=== PATIENT | female | born 1975 | race Caucasian/White ===

== ENCOUNTER 2020-02-20 09:16 | Outpatient (REF) | payer OTHER, SELFPAY ==
[2020-02-20 12:28] LABS: TSH reflex Free T4 1.28 mIU/mL (0.32-4.0)
== END 2020-02-20 09:17 | disposition home or self-care (01) ==
LOC: HO.LAB 09:16
PROVIDERS: PCP Internal Medicine; Referring Provider Internal Medicine; Visit Provider Obstetrics & Gynecology
DX: R63.5 Abnormal weight gain (principal)
CPT/HCPCS: 84443

== ENCOUNTER 2020-03-12 13:03 | Outpatient (REF) | payer OTHER, SELFPAY | END 2020-03-12 13:04 | disposition home or self-care (01) | LOC: HO.LAB 13:03 | PROVIDERS: PCP Internal Medicine; Visit Provider Internal Medicine | DX: Z20.822 Contact with and (suspected) exposure to COVID-19 (principal) | CPT/HCPCS: 36415; C9803; U0003 ==

== ENCOUNTER 2020-04-06 16:23 | Outpatient (REF) | payer OTHER, SELFPAY ==
--- NOTE | ~2020-04-06 | MM_ITS ---
EXAMINATION: MM SCREENING DIGITAL BREAST TOMOSYNTHESIS, BILATERAL CLINICAL INFORMATION: Screening. Asymptomatic. The lifetime risk of breast cancer based on the Tyrer-Cuzick Model is 9%. COMPARISON: Mammography: 03/31/2019, 03/25/2018, 03/17/2017 TECHNIQUE: Digital breast tomosynthesis is performed in both the craniocaudal and mediolateral oblique views along with computer-aided detection (CAD). Synthesized 2D images are generated from the tomosynthesis. Additional exaggerated right CC view is provided. FINDINGS: There are scattered areas of fibroglandular density (ACR BI-RADS breast composition Category b). There are no significant masses, abnormal calcifications, or other abnormalities. Parenchymal pattern is similar to prior studies. No developing density. The axilla and skin contours are unremarkable. There is a dermal lesion overlying the posterior outer right breast on exaggerated CC view. MM/MM tomosynthesis screening BI IMPRESSION: No mammographic evidence of malignancy. ASSESSMENT: BI-RADS 2: Benign RECOMMENDATION: Routine annual mammography screening. This patient's information was entered into a reminder system with a target due date for their next mammogram.
== END 2020-04-06 16:24 | disposition home or self-care (01) ==
LOC: HO.MAMMO 16:23
PROVIDERS: PCP Internal Medicine; Visit Provider Internal Medicine
DX: Z12.31 Encounter for screening mammogram for malignant neoplasm of breast (principal)
CPT/HCPCS: 77063; 77067

== ENCOUNTER 2021-02-20 10:00 | Outpatient (REF) | payer OTHER, SELFPAY ==
[2021-02-20 15:16] LABS: CT PCR NOT DETECTED (Not Detect.); NG PCR NOT DETECTED (Not Detect.)
[2021-02-21 09:36] LABS: BV Int Neg Control Negative (Negative); BV Int Pos Control Positive (Positive)
[2021-02-27 04:41] LABS: HPV mRNA E6/E7 rflx Not Detected (Not Detected)
== END 2021-02-20 10:01 | disposition home or self-care (01) ==
LOC: HO.LAB 10:00
PROVIDERS: Visit Provider Advanced Practice Midwife
DX: Z01.419 Encounter for gynecological examination (general) (routine) without abnormal findings (principal); Z11.51 Encounter for screening for human papillomavirus (HPV); Z97.5 Presence of (intrauterine) contraceptive device
CPT/HCPCS: 87480; 87491; 87510; 87591; 87624; 87660; 88142

== ENCOUNTER 2021-04-11 15:48 | Outpatient (REF) | payer OTHER, SELFPAY ==
--- NOTE | ~2021-04-11 | MM_ITS ---
EXAMINATION: MM SCREENING DIGITAL BREAST TOMOSYNTHESIS, BILATERAL CLINICAL INFORMATION: Screening. Asymptomatic. The lifetime risk of breast cancer based on the Tyrer-Cuzick Model is 8.7%. COMPARISON: Mammography: April 06, 2020 and studies dating back to March 17, 2017 TECHNIQUE: Digital breast tomosynthesis is performed in both the craniocaudal and mediolateral oblique views along with computer-aided detection (CAD). Synthesized 2D images are generated from the tomosynthesis. FINDINGS: There are scattered areas of fibroglandular density (ACR BI-RADS breast composition Category b). There are no significant masses, abnormal calcifications, or other abnormalities. MM/MM tomosynthesis screening BI IMPRESSION: There are no significant changes from prior study. ASSESSMENT: BI-RADS 1: Negative RECOMMENDATION: Routine annual mammography screening. This patient's information was entered into a reminder system with a target due date for their next mammogram.
== END 2021-04-11 15:49 | disposition home or self-care (01) ==
LOC: HO.MAMMO 15:48
PROVIDERS: PCP Internal Medicine; Visit Provider Internal Medicine
DX: Z12.31 Encounter for screening mammogram for malignant neoplasm of breast (principal)
CPT/HCPCS: 77063; 77067

== ENCOUNTER → 2021-05-20 14:21 | Outpatient (BNVA) | payer OTHER, SELFPAY | PROVIDERS: PCP Internal Medicine; Visit Provider Advanced Practice Midwife | DX: Z30.433 Encounter for removal and reinsertion of intrauterine contraceptive device (principal); Z87.891 Personal history of nicotine dependence | CPT/HCPCS: 58301; 81025 ==

== ENCOUNTER → 2021-07-03 14:51 | Outpatient (BNVA) | payer OTHER, SELFPAY | PROVIDERS: PCP Internal Medicine; Visit Provider Advanced Practice Midwife | DX: Z30.431 Encounter for routine checking of intrauterine contraceptive device (principal) | CPT/HCPCS: 81025 ==

== ENCOUNTER → 2022-02-26 09:52 | Outpatient (BNVA) | payer OTHER, SELFPAY | PROVIDERS: PCP Internal Medicine; Visit Provider Advanced Practice Midwife | DX: Z12.4 Encounter for screening for malignant neoplasm of cervix (principal) ==

== ENCOUNTER 2022-04-28 12:44 | Outpatient (REF) | payer OTHER, SELFPAY ==
--- NOTE | ~2022-04-28 | MM_ITS ---
EXAMINATION: MM SCREENING DIGITAL BREAST TOMOSYNTHESIS, BILATERAL CLINICAL INFORMATION: Screening. Asymptomatic. The lifetime risk of breast cancer based on the Tyrer-Cuzick Model is 10.0%. COMPARISON: Mammography: April 11, 2021 and studies dating back to March 17, 2017 TECHNIQUE: Digital breast tomosynthesis is performed in both the craniocaudal and mediolateral oblique views along with computer-aided detection (CAD). Synthesized 2D images are generated from the tomosynthesis. FINDINGS: The breasts are heterogeneously dense, which may obscure small masses (ACR BI-RADS breast composition Category c). There is multiplicity and bilaterality of calcifications left greater than right with no new suspicious changes. No new abnormal dominant mass is seen. No region of architectural distortion is appreciated. MM/MM tomosynthesis screening BI IMPRESSION: No significant changes from prior exam. ASSESSMENT: BI-RADS 2: Benign RECOMMENDATION: Routine annual mammography screening. This patient's information was entered into a reminder system with a target due date for their next mammogram.
== END 2022-04-28 12:45 | disposition home or self-care (01) ==
LOC: HO.MAMMO 12:44
PROVIDERS: Visit Provider Internal Medicine
DX: Z12.31 Encounter for screening mammogram for malignant neoplasm of breast (principal)
CPT/HCPCS: 77063; 77067

== ENCOUNTER 2023-03-04 14:54 | Outpatient (AMB) | payer OTHER, SELFPAY ==
--- NOTE | 2023-03-04 14:57 | MHC.OFFVIS ---
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 Intake Note: problems loosing weight, is wondering if the mirena is the cause of it Edge Drummer Required: No Information Interpreted: non-clinical & clinical Brattice Builder: Brattice Builder Present (Vincenzoyn) Allergies No Known Allergies Allergy (Mild, Verified 03/04/23 15:00) NOT APPLICABLE Medication List - Last Reconciled 03/04/23 by Vickie Hernández CNM fluticasone propionate 50 mcg/actuation sprays intranasal levonorgestrel (Mirena) intrauterine Is last menstrual period known: No (no menses Mirena) 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 Details 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 She sees her primary care provider when she needs to. She is absolutely no worries about STDs and declines testing. PFSH Family History Father Brain aneurysm Social History Alcohol intake: current Alcohol intake frequency: holidays/special occasions only Patient Tobacco Use Status: Former Tobacco user Sexual orientation: Straight/Heterosexual Gender identity: Female Female Reproductive History Menstrual Age of Menarche: 16 control method: progestin IUCD Total pregnancies: 3 Full term: 3 Number of Living Children: 3 Date of last pap smear: 02/25/21 (negative) History of abnormal pap smear: Yes (2001 ASCUS 2000 CIN1, no recent abnormals in 20 years) Date of Mammogram: 04/28/22 Physical Exam Vital Signs: BMI result Body Mass Index 35.7 Const General: healthy appearing, comfortable, no acute distress, well developed and alert Nutritional Appearance: average body habitus Orientation/consciousness: patient oriented x3 Limitations: no limitations HEENT Head: Yes normocephalic Neck Neck: Yes normal visual inspection Chest Chest palpation & inspection: normal inspection of the chest Breast/axilla inspection: normal inspection of the breasts and normal inspection of the axillae Breast/axilla palpation: normal palpation of the breasts and normal palpation of the axillae Resp Effort & Inspection: normal respiratory effort GI Inspection: Yes normal to inspection, No Abdominal wall edema and No distended Palpation (GI): Soft to palpation and nontender Other: Normal external exam vagina pink and moist cervix multiparous with Mirena strings in os cervix mobile nontender uterus mobile nontender not enlarged adnexa nontender very good tone with Kegel. General: Yes bladder normal to palpation External Female Exam: normal external appearance and normal appearance of the urethra Speculum Exam - Vagina: normal appearance of the vagina, normal palpation and normal vaginal discharge Speculum Exam - Cervix: normal appearance of the cervix, normal palpation and nontender Bimanual exam- vagina & uterus: normal bimanual exam, normal palpation, uterine size normal, bladder normal to palpation, consistency normal, normal palpation, uterine mobility normal, uterine shape normal, No Cervical tenderness present, non-tender and no cervical motion tenderness Bimanual Exam- Adnexa, other: normal adnexae, no masses, normal and No adnexal tenderness Neuro General: patient oriented x3 Assessment & Plan Assessment & Plan (1) Encounter for routine checking of intrauterine contraceptive device (IUD): Code(s): Z30.431 - Encounter for routine checking of intrauterine contraceptive device (2) Cervical cancer screening: Comment: 02/20/21 pap= neg/ neg hpv Code(s): Z12.4 - Encounter for screening for malignant neoplasm of cervix (3) Well woman exam with routine gynecological exam: Code(s): Z01.419 - Encounter for gynecological examination (general) (routine) without abnormal findings Plan -----Discussed in this visit the following: healthy balanced diet, regular and consistent exercise, getting recommended health screens, doing the best she can for her particular health concerns, kegel exercises, pap smear screening and followup recommendations, mammography screening and SBE, normal changes in cycles in her life stage--- . Discussed her excellent efforts to take care of herself in eat a balanced healthy diet and get enough calcium in her diet as well as varied food groups. Congratulated on her efforts with physical exercise and weightlifting and attention to health. Discussed that it would be unusual for the Mirena to contribute to weight gain or difficulty losing weight but they are so many things in our lives that can contribute to that including our diet and food choices and balance of exercise and intake. She feels it is possible she is less active now than she used to be and that could be contributing to it as well. She is up-to-date on her mammograms. Pap smear not indicated as all her previous abnormals were over 20 years ago and her more recent ones were negative. Coding Level of Care Code Est Pt Prev Care 40-64y(89366) Diagnoses Encounter for routine checking of intrauterine contraceptive device (IUD) Z30.431 Cervical cancer screening Z12.4 Well woman exam with routine gynecological exam Z01.419
[2023-03-04 14:58] VITALS: BMI 35.7
== END 2023-03-04 16:04 | disposition home or self-care (01) ==
LOC: HO.HWSM 14:54
PROVIDERS: PCP Internal Medicine; Visit Provider Advanced Practice Midwife
DX: Z30.431 Encounter for routine checking of intrauterine contraceptive device (principal); Z12.4 Encounter for screening for malignant neoplasm of cervix; Z01.419 Encounter for gynecological examination (general) (routine) without abnormal findings
CPT/HCPCS: 99396

== ENCOUNTER → 2023-03-04 14:54 | Outpatient (BNVA) | payer OTHER, SELFPAY | PROVIDERS: PCP Internal Medicine; Visit Provider Advanced Practice Midwife ==

== ENCOUNTER 2023-04-30 16:26 | Outpatient (REF) | payer OTHER, SELFPAY | END 2023-04-30 16:27 | disposition home or self-care (01) | LOC: HO.MAMMO 16:26 | PROVIDERS: PCP Internal Medicine; Visit Provider Internal Medicine | DX: Z12.31 Encounter for screening mammogram for malignant neoplasm of breast (principal) | CPT/HCPCS: 77063; 77067 ==

== ENCOUNTER → 2023-04-30 16:30 | Outpatient (BNV) | payer OTHER, SELFPAY | PROVIDERS: PCP Internal Medicine; Visit Provider Radiology Diagnostic Radiology | DX: Z12.31 Encounter for screening mammogram for malignant neoplasm of breast (principal) | CPT/HCPCS: 77063; 77067 ==

== ENCOUNTER 2024-03-07 12:55 | Outpatient (AMB) | payer OTHER, SELFPAY ==
--- NOTE | 2024-03-07 13:04 | MHC.OFFVIS ---
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 Carrier Services: Merchandise Carrier Present Information Interpreted: clinical only Gas Derrick Operator: Gas Derrick Operator Present Allergies No Known Allergies Allergy (Mild, Verified 03/07/24 13:09) NOT APPLICABLE Medication List - Last Reconciled 03/07/24 by Vickie Hernández CNM fluticasone propionate 50 mcg/actuation sprays intranasal levonorgestrel (Mirena) intrauterine Is last menstrual period known: No (no/IUD) HPI HPI 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 She is using it for control she is not having any problems with the at all occasionally she has a little bit of spotting that is it. She still works out and does what she can to stay healthy. She was surprised that she gained weight.. She feels well though. She sees Dr. Galdamez in his aware he will be retiring. She is aware about getting screening for various health concerns in his pondering colonoscopy. She gets her mammograms yearly last 1 was 04/21/2023 and she will be scheduling the next 1 when she gets the reminder. PFSH Family History Father Brain aneurysm Social History Alcohol intake: current Alcohol intake frequency: holidays/special occasions only Patient Tobacco Use Status: Former Tobacco user Sexual orientation: Straight/Heterosexual Gender identity: Female Female Reproductive History Menstrual Age of Menarche: 16 control method: progestin IUCD Total pregnancies: 3 Full term: 3 Date of last pap smear: 02/25/21 (negative) History of abnormal pap smear: Yes (hx [email or web address].pap) Date of Mammogram: 04/30/23 (negative) Physical Exam Vital Signs: Last Vital Signs BP 140/78 H 03/07/24 13:08 BMI result Body Mass Index 35.6 Const General: healthy appearing, comfortable, no acute distress, well developed and alert Nutritional Appearance: average body habitus Orientation/consciousness: patient oriented x3 Limitations: no limitations HEENT Head: Yes normocephalic Neck Neck: Yes normal visual inspection Chest Chest palpation & inspection: normal inspection of the chest Breast/axilla inspection: normal inspection of the breasts and normal inspection of the axillae Breast/axilla palpation: normal palpation of the breasts and normal palpation of the axillae Resp Effort & Inspection: normal respiratory effort GI Inspection: Yes normal to inspection, No Abdominal wall edema and No distended Palpation (GI): Soft to palpation and nontender Other: Vagina pink and moist small amount of whitish yellowish scant discharge with a small blood-tinged lot of mucus collected on the Mirena strings, which extend about 2 cm to 3 cm. Cervix multiparous pink smooth mobile nontender uterus anteverted to midposition nontender, not enlarged, adnexa not enlarged, nontender good tone with Kegel. General: Yes bladder normal to palpation External Female Exam: normal external appearance and normal appearance of the urethra Speculum Exam - Vagina: normal appearance of the vagina, normal palpation and normal vaginal discharge Speculum Exam - Cervix: normal appearance of the cervix, normal palpation and nontender Bimanual exam- vagina & uterus: normal bimanual exam, normal palpation, uterine size normal, bladder normal to palpation, consistency normal, normal palpation, uterine mobility normal, uterine shape normal, No Cervical tenderness present, non-tender and no cervical motion tenderness Bimanual Exam- Adnexa, other: normal adnexae, no masses, normal and No adnexal tenderness Neuro General: patient oriented x3 Results Reviewed Results Reviewed: Name: Prem Lan Age/Sex: 45/F Attending: Vickie Hernández CNM : 1975 Submitted by: Vickie Hernández CNM Copies to: MR #: [id number] Status: DEP REF Collected: 02/20/21 Location: [facility] Received: 02/25/21 Interpretation Satisfactory for evaluation. Mild inflammation. Negative for intraepithelial lesion or malignancy. HPV mRNA E6/E7: NOT DETECTED This assay detects E6/E7 viral messenger RNA (mRNA) from 14 high-risk HPV types (16, 18, 31, 33, 35, 39, 45, 51, 52, 56, 58, 59, 66, 68) HPV testing performed by [facility], [place], [place]. See reference laboratory portion of the EMR for entire report. Clinical Information LMP: Efrain Previous PAP test: 2017, WNL Material Received ThinPrep- Cervical Electronically Signed By: AXEL Cevallos (ASCP) 03/05/21 0528 The Pap Test is a screening procedure with the inherent possibility of both false negative and false positive results. Results should be interpreted in the context of historic and current clinical findings. Reliability of the Pap Test is enhanced by performing the test on a regular repetitive basis. Patient: Prem Lan Age/Sex: 45/F MR#: [id number] Page 1 of 1 Patient: Prem Lan MR#: [id number] : 1975 Acct:[id number] Age/Sex: 47 / F ADM Date: 04/30/23 Loc: [facility] Attending Dr: Anam Galdamez MD Ordering Physician: Anam Galdamez MD Results: 1Negative Date of Service: 04/30/23 Follow Up: 1 Year From Original Mammogram Procedure(s): MM tomosynthesis screening BI Accession Number(s): [id number] cc: Anam Galdamez MD~ EXAMINATION: MM SCREENING DIGITAL BREAST TOMOSYNTHESIS, BILATERAL CLINICAL INFORMATION: Screening. Asymptomatic. COMPARISON: Mammography: This study is compared with prior exams dating back to 2019. TECHNIQUE: Digital breast tomosynthesis is performed in both the craniocaudal and mediolateral oblique views along with computer-aided detection (CAD). Synthesized 2D images are generated from the tomosynthesis. FINDINGS: The breasts are heterogeneously dense, which may obscure small masses (ACR BI-RADS breast composition Category c). There are no significant masses, abnormal calcifications, or other abnormalities. MM/MM tomosynthesis screening BI IMPRESSION: No mammographic evidence of malignancy. ASSESSMENT: BI-RADS BI-RADS 1 - Negative RECOMMENDATION: Routine annual mammography screening. 1 year F/U This examination should not preclude the clinical evaluation of a suspicious palpable abnormality. This patient's information was entered into a reminder system with a target due date for their next mammogram. Dictated By: Breanna De León MD Assessment & Plan Assessment & Plan (1) Cervical cancer screening: Comment: Remote history of abnormal Pap X1; 02/20/21 pap= neg/ neg hpv; Pap smear done 03/07/2024. Code(s): Z12.4 - Encounter for screening for malignant neoplasm of cervix Category: Medical (2) Presence of 52 mg levonorgestrel-releasing intrauterine device (IUD): Code(s): Z97.5 - Presence of (intrauterine) contraceptive device Category: Social Hx (3) Well woman exam with routine gynecological exam: Code(s): Z01.419 - Encounter for gynecological examination (general) (routine) without abnormal findings Category: Medical (4) Encounter for routine checking of intrauterine contraceptive device (IUD): Code(s): Z30.431 - Encounter for routine checking of intrauterine contraceptive device Category: Medical (5) Breast cancer screening: Comment: She gets her yearly mammograms Code(s): Z12.39 - Encounter for other screening for malignant neoplasm of breast Category: Medical Plan -----Discussed in this visit the following: healthy balanced diet, regular and consistent exercise, getting recommended health screens, doing the best she can for her particular health concerns, kegel exercises, pap smear screening and followup recommendations, mammography screening and SBE, normal changes in cycles in her life stage--- . Reviewed regular health screenings and sometimes we need more screenings as we get older she will be looking for another primary care provider with the [facility] system. Reviewed jimmy menopausal changes to expect reviewed the somewhat newer guidelines about how long the Mirena can be useful for discussed the confluence of jimmy menopausal symptoms how can be difficult to figure out discussed ensuring that she has protection from if that is primary lead and defer menses returned monthly that would be possibly sign vena did need to be replaced discussed other symptoms of menopause to be mindful of. Orders: Orders Pap Smear Today Z01.419 - Encounter for gynecological examination (general) (routine) without abnormal findings Coding Level of Care Code Est Pt Prev Care 40-64y(24942) Diagnoses Cervical cancer screening Z12.4 Presence of 52 mg levonorgestrel-releasing intrauterine device (IUD) Z97.5 Well woman exam with routine gynecological exam Z01.419 Encounter for routine checking of intrauterine contraceptive device (IUD) Z30.431 Breast cancer screening Z12.39
[2024-03-07 13:08] VITALS: BP 140/78; BMI 35.6
== END 2024-03-07 13:36 | disposition home or self-care (01) ==
LOC: HO.HWSM 12:55
PROVIDERS: PCP Internal Medicine; Visit Provider Advanced Practice Midwife
DX: Z01.419 Encounter for gynecological examination (general) (routine) without abnormal findings (principal); Z97.5 Presence of (intrauterine) contraceptive device
CPT/HCPCS: 99396; 99459

== ENCOUNTER 2024-03-07 12:55 | Outpatient (REF) | payer OTHER, SELFPAY ==
[2024-03-08 10:39] LABS: HPV 16,18/45 See PAP report
== END 2024-03-07 12:56 | disposition home or self-care (01) ==
LOC: HO.LNP 12:55
PROVIDERS: PCP Internal Medicine; Visit Provider Advanced Practice Midwife
DX: Z01.419 Encounter for gynecological examination (general) (routine) without abnormal findings (principal)
CPT/HCPCS: 87626; 88175

== ENCOUNTER 2024-05-05 16:22 | Outpatient (REF) | payer OTHER, SELFPAY | END 2024-05-05 16:23 | disposition home or self-care (01) | LOC: HO.MAMMO 16:22 | PROVIDERS: PCP Internal Medicine; Visit Provider Internal Medicine | DX: Z12.31 Encounter for screening mammogram for malignant neoplasm of breast (principal) | CPT/HCPCS: 77063; 77067 ==

== ENCOUNTER → 2024-05-05 16:30 | Outpatient (BNV) | payer OTHER, SELFPAY | PROVIDERS: PCP Internal Medicine; Visit Provider Internal Medicine | DX: Z12.31 Encounter for screening mammogram for malignant neoplasm of breast (principal) | CPT/HCPCS: 77063; 77067 ==